=== PATIENT | male | born 1950 | race Caucasian/White ===

== ENCOUNTER → 2022-09-23 | Outpatient (CLI) | payer OTHER ==
[~2022-09-23] MED LIST: IOPAMIDOL 370 MG/ML 100 ML INFUS..BTL INJ ONE; SODIUM CHLORIDE 0.9% 100 ML ONE
[2022-09-23 08:40] LABS: CREATININE, SERUM 1.08 mg/dL (0.72-1.25)
== END ==
LOC: MRI 07:31
PROVIDERS: ATTEND Family Medicine
DX: R97.20 Elevated prostate specific antigen [PSA] (principal); M51.36 Other intervertebral disc degeneration, lumbar region; M17.0 Bilateral primary osteoarthritis of knee
CPT/HCPCS: 36415; 72148; 72193; 73721 ×2; 82565; 84520; J7050; Q9967